=== PATIENT | female | born 1985 | race Caucasian/White ===

== ENCOUNTER 2017-07-28 22:28 | Emergency (ER) | payer OTHER ==
--- NOTE | 2017-07-28 22:55 | ED Physician Documentation ---
PD HPI UPPER EXT INJURY - Stated complaint Stated Complaint: R WRIST INJURY - Chief complaint Chief Complaint: Trauma Ext - History obtained from History obtained from: Patient - History of Present Illness Location: Right, Wrist, Other (back of head) Type of injury: Fall (sitting in chair and it tipped, and she fell back, struck head lightly, but mostly hurt wrist trying to protect/guard the fall.) Timing - onset: Today Timing - details: Abrupt onset, Still present Worsened by: Moving, Palpating Associated symptoms: Swelling. No: Weakness, Numbness Contributing factors: No: Anticoagulated Similar symptoms before: Has not had sx before Review of Systems Constitutional: denies: Fever, Chills, Myalgias Neurologic: reports: Head injury. denies: Generalized weakness, Focal weakness , Numbness, Near syncope, Confused, Altered mental status, Headache PD PAST MEDICAL HISTORY - Past Medical History Cardiovascular: None Respiratory: None Neuro: None Endocrine/Autoimmune: None - Allergies Allergies/Adverse Reactions: Allergies Allergy/AdvReac Type Severity Reaction Status Date / Time morphine AdvReac Itching Verified 07/28/17 22:42 Sulfa (Sulfonamide AdvReac Rash Verified 07/28/17 22:42 Antibiotics) - Social History Does the pt smoke?: No Does the pt drink ETOH?: No Does the pt have substance abuse?: No - Family History Family history: reports: Non contributory PD ED PE NORMAL - Vitals Vital signs reviewed: Yes - General General: Alert and oriented X 3, No acute distress, Well developed/nourished - HEENT HEENT: Atraumatic, Moist mucous membranes, Pharynx benign - Neck Neck: Supple, no meningeal sign, No bony TTP, No adenopathy - Derm Derm: Warm and dry - Extremities Extremities: No deformity, No tenderness to palpate, Normal ROM s pain, Other ( wrist with tenderness along dorsal aspect. Not tender in snuffbox area. no gross deformity, but mild swelling. ) - Neuro Neuro: Alert and oriented X 3, No motor deficit, No sensory deficit, Normal speech Results - Vitals Vitals: Oxygen O2 Source Room air - Rads (name of study) rigth forearm Radiology: Prelim report reviewed (no fractures), EMP read contemporaneously Procedures - Splint (location) right wrist Splint applied by: Tech Type of splint: Prefab velcro wrist Other: Patient tolerated well, No complications PD MEDICAL DECISION MAKING - ED course Complexity details: reviewed old records, reviewed results, considered differential, d/w patient Departure - Departure Disposition: 01 Home, Self Care Clinical Impression: Fall from chair, initial encounter Head contusion Qualifiers: Encounter type: initial encounter Contusion of head detail: scalp Qualified Code(s): S00.03XA - Contusion of scalp, initial encounter Right wrist sprain Qualifiers: Encounter type: initial encounter Qualified Code(s): S63.501A - Unspecified sprain of right wrist, initial encounter Condition: Stable Record reviewed to determine appropriate education?: Yes Instructions: ED Sprain Wrist Comments: Use a wrist splint for comfort over the next several days to week or so. To reduce swelling for comfort. Tylenol or ibuprofen if needed for pains. This should improve over the next several days to week. Recheck if is not better in that timeframe. Discharge Date/Time: 07/29/17 00:00
[2017-07-28] MEDS ORDERED: IBUPROFEN 600 MG TABLET PO STA (23:29)
[2017-07-28] MEDS ORDERED: ACETAMINOPHEN 325 MG TABLET PO STA (23:29)
[2017-07-28 23:35] VITALS: BP 137/88
--- NOTE | 2017-07-28 23:39 | XRAY Preliminary Report ---
Exam: XR FOREARM RT IMPRESSION: No acute osseous abnormality demonstrated. SITE ID: [id number]
--- NOTE | 2017-07-28 23:39 | XRAY Report ---
EXAM: RIGHT FOREARM RADIOGRAPHY EXAM DATE: 07/28/2017 10:53 PM. CLINICAL HISTORY: Fall, pain COMPARISON: None. TECHNIQUE: 2 views. FINDINGS: Bones: No acute displaced fractures or suspicious bony lesion. Joints: No dislocation. Soft Tissues: No significant soft tissue swelling. IMPRESSION: No acute osseous abnormality demonstrated. Referring Provider Line: [phone] SITE ID: [id number]
== END 2017-07-29 | disposition home or self-care (01) ==
LOC: ED 22:28
DX: S00.03XA Contusion of scalp, initial encounter (principal); S63.501A Unspecified sprain of right wrist, initial encounter; W07.XXXA Fall from chair, initial encounter
CPT/HCPCS: 73090; 99283; A9270